=== PATIENT | male | born 1985 | race Caucasian/White ===

== ENCOUNTER 2017-11-20 17:34 | Emergency (ER) | payer MEDICAID, SELFPAY ==
[2017-11-20 18:53] VITALS: BP 107/74; PULSE 69; RESP 18; TEMP 36.8; O2SAT 97; BMI 20.2
--- NOTE | 2017-11-20 19:17 | HMH.EDUTC ---
[facility] [place]ression: Viral upper respiratory illness Disposition: Home, Self-Care Condition on Discharge: Good Instructions: DI for Viral Upper Respiratory Infection -- Adult Additional Instructions: * No sign of bacterial infection. Likely viral. Virus can take 7-14 days to run their course * Nasal Saline to remove nasal drainage and help with nasal congestion. Hard to eat, drink, sleep with nasal congestion so important to keep nose cleaned out * Monitor Temp. Follow up if fever develops. * Encourage fluids, water, gatorade, powerade, pedialyte if infant/toddler/child * warm salt water gargles * warm fluids * sore throat lozenges * sleep elevated * humidifier/vaporizer * Bromfed may cause drowsiness. Know how it effects you (or your child) before driving, caring for small children, or sending your child to school. No other antihistamines/allergy medications while taking bromfed. Prescriptions: Brompheniramine/Pseudoephed/Dm [Bromfed DM Cough Syrup 5mL] 10 ml PO QID PRN #240 ml PRN Reason: Cough Referrals: Gideon Solis [Primary Care Provider] - (Follow up IMMEDIATELY for new or worsening symptoms OR no noticeable improvement over the next 72 hours. 911 for difficulty breathing or swallowing) Time of Disposition: 19:19 Medical Decision Making - Dejuan Inquiry Pt receiving controlled substance: No Vital Signs: 11/20/17 18:53 11/20/17 19:29 Temperature 98.2 F 98.4 F Temperature Source Temporal Artery Scan Pulse Rate 72 Pulse Rate [Right Radial] 69 Respiratory Rate 18 18 Blood Pressure 105/68 Blood Pressure [Right Arm] 107/74 Blood Pressure Mean [Right Arm] 85 Blood Pressure Source [Right Arm] Automatic Cuff Blood Pressure Position [Right Arm] Sitting 02 Sat by Pulse Oximetry 97 Oxygen Delivery Method Room Air Room Air [facility] [place] - General Stated complaint: cough runny nose fever Time Seen by Provider: 11/20/17 18:45 Mode of Arrival: Family Vehicle Source of Information: Patient Limitations: No Limitations Description of Symptoms (Recalled from Triage Doc. by RN): PT C/O UPPER RESPIRATORY ISSUES AND LOW GRADE FEVER SINCE LAST WEEK. HEENT Symptoms (Recalled from RN notes): Yes (UPPER RESPIRATORY ISSUES) Resp Symptoms (Recalled from RN notes): Yes (COUGH) Skin Symptoms (Recalled from RN notes): No MS Symptoms (Recalled from RN notes): No Functional Status (Recalled from RN notes): NA - History of Present Illness Provider Complaint: c/o nonprod cough, rhinorrhea, nasal congestion, sneezing since last Thursday. and kids all with same symptoms. Cough worse at night. No SOA, wheezing. + tobacco use. Hasn't taken or tried anything for symptoms. - Related Data Previous Rx's Medication Instructions Recorded Brompheniramine/Pseudoephed/Dm 10 ml PO QID PRN #240 ml 11/20/17 [Bromfed DM Cough Syrup 5mL] Allergies Allergy/AdvReac Type Severity Reaction Status Date / Time cefaclor [From CECLOR] Allergy Unknown Verified 11/20/17 19:00 Penicillins [PENICILLINS] Allergy Unknown Verified 11/20/17 19:00 - Worker's Comp Is this a Worker's Comp case?: No [facility] History I have reviewed the patient's past medical history: Yes Medical History: Denies:: Cancer, Diabetes Mellitus Type 1, Diabetes Mellitus Type 2, Hypertension, MRSA Other Surgeries: Yes: No Previous Surgery Amputation: No Fractures: No - Social History Smoking Status: Current every day smoker Tobacco Type: cigarettes Alcohol Intake: never - Psychiatric History Expresses thoughts of harming self/others: None Suicide Plan Description: No Plan ROS Obtained: Yes Systems reviewed as appropriate & no additional complaints - Constitutional Constitutional: Reports as per HPI, Denies body ache, Denies chills, Denies poor appetite - Eyes Eyes: Denies eye discharge, Denies itchy eyes - ENT Ears, Nose, Mouth, and Throat: Reports as per HPI, Denies otalgia, Reports post nasal drip, Denies sinus pressure, De
--- NOTE | 2017-11-20 19:20 | ED_ITS ---
[facility] [place]: Viral upper respiratory illness Disposition: Home, Self-Care Condition on Discharge: Good Instructions: DI for Viral Upper Respiratory Infection -- Adult Additional Instructions: * No sign of bacterial infection. Likely viral. Virus can take 7-14 days to run their course * Nasal Saline to remove nasal drainage and help with nasal congestion. Hard to eat, drink, sleep with nasal congestion so important to keep nose cleaned out * Monitor Temp. Follow up if fever develops. * Encourage fluids, water, gatorade, powerade, pedialyte if infant/toddler/ child * warm salt water gargles * warm fluids * sore throat lozenges * sleep elevated * humidifier/vaporizer * Bromfed may cause drowsiness. Know how it effects you (or your child) before driving, caring for small children, or sending your child to school. No other antihistamines/allergy medications while taking bromfed. Prescriptions: Brompheniramine/Pseudoephed/Dm [Bromfed DM Cough Syrup 5mL] 10 ml PO QID PRN # 240 ml PRN Reason: Cough Referrals: Gideon Solis [Primary Care Provider] - (Follow up IMMEDIATELY for new or worsening symptoms OR no noticeable improvement over the next 72 hours. 911 for difficulty breathing or swallowing) Time of Disposition: 19:19 Medical Decision Making - Dejuan Inquiry Pt receiving controlled substance: No Vital Signs: 11/20/17 18:53 11/20/17 19:29 Temperature 98.2 F 98.4 F Temperature Source Temporal Artery Scan Pulse Rate 72 Pulse Rate [Right Radial] 69 Respiratory Rate 18 18 Blood Pressure 105/68 Blood Pressure [Right Arm] 107/74 Blood Pressure Mean [Right Arm] 85 Blood Pressure Source [Right Arm] Automatic Cuff Blood Pressure Position [Right Arm] Sitting 02 Sat by Pulse Oximetry 97 Oxygen Delivery Method Room Air Room Air [facility] [place] - General Stated complaint: cough runny nose fever Time Seen by Provider: 11/20/17 18:45 Mode of Arrival: Family Vehicle Source of Information: Patient Limitations: No Limitations Description of Symptoms (Recalled from Triage Doc. by RN): PT C/O UPPER RESPIRATORY ISSUES AND LOW GRADE FEVER SINCE LAST WEEK. HEENT Symptoms (Recalled from RN notes): Yes (UPPER RESPIRATORY ISSUES) Resp Symptoms (Recalled from RN notes): Yes (COUGH) Skin Symptoms (Recalled from RN notes): No MS Symptoms (Recalled from RN notes): No Functional Status (Recalled from RN notes): NA - History of Present Illness Provider Complaint: c/o nonprod cough, rhinorrhea, nasal congestion, sneezing since last Thursday. and kids all with same symptoms. Cough worse at night. No SOA, wheezing. + tobacco use. Hasn't taken or tried anything for symptoms. - Related Data Previous Rx's Medication Instructions Recorded Brompheniramine/Pseudoephed/Dm 10 ml PO QID PRN #240 ml 11/20/17 [Bromfed DM Cough Syrup 5mL] Allergies Allergy/AdvReac Type Severity Reaction Status Date / Time cefaclor [From CECLOR] Allergy Unknown Verified 11/20/17 19:00 Penicillins [PENICILLINS] Allergy Unknown Verified 11/20/17 19:00 - Worker's Comp Is this a Worker's Comp case?: No [facility] History I have reviewed the patient's past medical history: Yes Medical History: Denies:: Cancer, Diabetes Mellitus Type 1, Diabetes Mellitus Type 2, Hypertension, MRSA Other Surgeries: Yes: No Previous Surgery Amputation: No Frac
[2017-11-20 19:29] VITALS: BP 105/68; PULSE 72; RESP 18; TEMP 36.9; O2SAT 99
== END 2017-11-20 19:30 | disposition home or self-care (01) ==
PROVIDERS: Emergency Provider Nurse Practitioner Family; Family Provider Nurse Practitioner; PCP Family Medicine
DX: J06.9 Acute upper respiratory infection, unspecified (principal); Z88.0 Allergy status to penicillin
CPT/HCPCS: 99201

== ENCOUNTER 2017-12-10 16:51 | Emergency (ER) | payer MEDICAID, SELFPAY ==
[2017-12-10 17:02] VITALS: BMI 20.2
--- NOTE | 2017-12-10 17:02 | XR_ITS ---
XR shoulder LT min 2V COMPARISON: None HISTORY: Left shoulder pain TECHNIQUE: 3 views left shoulder FINDINGS: The clavicle is intact and the AC joint appears normal. The humeral head and glenoid are normal and there are no soft tissue calcifications. IMPRESSION: Negative left shoulder
[2017-12-10 17:07] VITALS: BP 127/78; PULSE 73; RESP 20; TEMP 36.5; O2SAT 98; BMI 20.2
--- NOTE | 2017-12-10 17:24 | HMH.EDUTC ---
[facility] [place] Clinical Impression: Left shoulder pain Qualifiers: Chronicity: acute Qualified Code(s): M25.512 - Pain in left shoulder Disposition: Home, Self-Care Condition on Discharge: Good Additional Instructions: Immobilize shoulder. Ice. F/U with PCP next week. Prescriptions: Cyclobenzaprine HCl [Cyclobenzaprine 10mg Tab] 10 mg PO TID PRN 10 Days #30 tab PRN Reason: Muscle Spasm methylPREDNISolone [Medrol] 4 mg PO DIRECTED 6 Days #1 tab.ds.pk Referrals: Gideon Solis [Primary Care Provider] - Time of Disposition: 17:44 Medical Decision Making - Dejuan Inquiry Pt receiving controlled substance: No Vital Signs: 12/10/17 17:07 Temperature 97.7 F Temperature Source Temporal Artery Scan Pulse Rate [Brachial] 73 Respiratory Rate 20 Blood Pressure [Right Arm] 127/78 Blood Pressure Mean [Right Arm] 94 Blood Pressure Source [Right Arm] Automatic Cuff Blood Pressure Position [Right Arm] Sitting 02 Sat by Pulse Oximetry 98 Orders (Tests/Meds): ORDERS Category Date Time Status Shoulder XR left minimum 2 views [XR shoulder LT min 2V Exams 12/10/17 17:02 Taken ] Stat - Radiology Data #1 Image(s): Shoulder Image Reviewed: Yes I reviewed the patient's radiology image Preliminary Findings: No Fracture Seen [facility] [place] HPI - General Stated complaint: left shhoulder pain Time Seen by Provider: 12/10/17 17:24 Mode of Arrival: Ambulatory Source of Information: Patient Limitations: No Limitations Description of Symptoms (Recalled from Triage Doc. by RN): PT PRESENTS WITH LEFT SHOULDER AND ARM PIT PAIN THAT BEGAN 2 DAYS AGO. PT DOES NOT KNOW IF HE INJURIED IT OR WHY HE HAS PAIN. LIMITED ROM IS NOTED. HEENT Symptoms (Recalled from RN notes): No Resp Symptoms (Recalled from RN notes): No Skin Symptoms (Recalled from RN notes): No MS Symptoms (Recalled from RN notes): Yes Functional Status (Recalled from RN notes): NA - History of Present Illness Provider Complaint: Patient presents with left shoulder pain X 2-3 days. No known injury. He has been doing yard and tree work, but doesn't recall any injury or acute pain while working. He denies any rash or skin breakdown or abscess. His arm does not hurt, does not feel numb or tingly, and does not feel weak. Onset (ago): day(s) (3) Location: left, upper extremity Radiation: non-radiation Quality: sharp, constant Consistency: constant Relieving factors: none Exacerbating factors: movement Associated symptoms: denies other symptoms Treatments prior to arrival: none - Related Data Previous Rx's Medication Instructions Recorded Brompheniramine/Pseudoephed/Dm 10 ml PO QID PRN #240 ml 11/20/17 [Bromfed DM Cough Syrup 5mL] Cyclobenzaprine HCl 10 mg PO TID PRN 10 Days #30 tab 12/10/17 [Cyclobenzaprine 10mg Tab] methylPREDNISolone [Medrol] 4 mg PO DIRECTED 6 Days #1 12/10/17 tab.ds.pk Allergies Allergy/AdvReac Type Severity Reaction Status Date / Time cefaclor [From CECLOR] Allergy Unknown Verified 11/20/17 19:00 Penicillins [PENICILLINS] Allergy Unknown Verified 11/20/17 19:00 - Worker's Comp Is this a Worker's Comp case?: No [facility] History I have reviewed the patient's past medical history: Yes Medical History: Denies:: Cancer, Diabetes Mellitus Type 1, Diabetes Mellitus Type 2, Hypertension, MRSA Other Surgeries: Yes: No Previous Surgery Amputation: No Fractures: No - Social History Smoking Status: Current every day smoker Tobacco Type: cigarettes Alcohol Intake: never - Psychiatric History Expresses thoughts of harming self/others: None Suicide Plan Description: No Plan ROS Obtained: Yes All systems reviewed & no additional complaints - Musculoskeletal Musculoskeletal: Reports joint pain, Reports joint stiffness, Reports limited range of motion Physical Exam - General General appearance: alert, in no apparent distress - Head Head exam: atraumatic, normocephalic - Eye Eye exam: Presen
--- NOTE | 2017-12-10 17:36 | ED_ITS ---
[facility] – [place] Disposition Clinical Impression: Left shoulder pain Qualifiers: Chronicity: acute Qualified Code(s): M25.512 - Pain in left shoulder Disposition: Home, Self-Care Condition on Discharge: Good Additional Instructions: Immobilize shoulder. Ice. F/U with PCP next week. Prescriptions: Cyclobenzaprine HCl [Cyclobenzaprine 10mg Tab] 10 mg PO TID PRN 10 Days #30 tab PRN Reason: Muscle Spasm methylPREDNISolone [Medrol] 4 mg PO DIRECTED 6 Days #1 tab.ds.pk Referrals: Gideon Solis [Primary Care Provider] - Time of Disposition: 17:44 Medical Decision Making - Dejuan Inquiry Pt receiving controlled substance: No Vital Signs: 12/10/17 17:07 Temperature 97.7 F Temperature Source Temporal Artery Scan Pulse Rate [Brachial] 73 Respiratory Rate 20 Blood Pressure [Right Arm] 127/78 Blood Pressure Mean [Right Arm] 94 Blood Pressure Source [Right Arm] Automatic Cuff Blood Pressure Position [Right Arm] Sitting 02 Sat by Pulse Oximetry 98 Orders (Tests/Meds): ORDERS Category Date Time Status Shoulder XR left minimum 2 views [XR shoulder LT min 2V Exams 12/10/17 17:02 Taken ] Stat - Radiology Data #1 Image(s): Shoulder Image Reviewed: Yes I reviewed the patient's radiology image Preliminary Findings: No Fracture Seen [facility] [place] HPI - General Stated complaint: left shhoulder pain Time Seen by Provider: 12/10/17 17:24 Mode of Arrival: Ambulatory Source of Information: Patient Limitations: No Limitations Description of Symptoms (Recalled from Triage Doc. by RN): PT PRESENTS WITH LEFT SHOULDER AND ARM PIT PAIN THAT BEGAN 2 DAYS AGO. PT DOES NOT KNOW IF HE INJURIED IT OR WHY HE HAS PAIN. LIMITED ROM IS NOTED. HEENT Symptoms (Recalled from RN notes): No Resp Symptoms (Recalled from RN notes): No Skin Symptoms (Recalled from RN notes): No MS Symptoms (Recalled from RN notes): Yes Functional Status (Recalled from RN notes): NA - History of Present Illness Provider Complaint: Patient presents with left shoulder pain X 2-3 days. No known injury. He has been doing yard and tree work, but doesn't recall any injury or acute pain while working. He denies any rash or skin breakdown or abscess. His arm does not hurt, does not feel numb or tingly, and does not feel weak. Onset (ago): day(s) (3) Location: left, upper extremity Radiation: non-radiation Quality: sharp, constant Consistency: constant Relieving factors: none Exacerbating factors: movement Associated symptoms: denies other symptoms Treatments prior to arrival: none - Related Data Previous Rx's Medication Instructions Recorded Brompheniramine/Pseudoephed/Dm 10 ml PO QID PRN #240 ml 11/20/17 [Bromfed DM Cough Syrup 5mL] Cyclobenzaprine HCl 10 mg PO TID PRN 10 Days #30 tab 12/10/17 [Cyclobenzaprine 10mg Tab] methylPREDNISolone [Medrol] 4 mg PO DIRECTED 6 Days #1 12/10/17 tab.[email or web address] Allergies Allergy/AdvReac Type Severity Reaction Status Date / Time cefaclor [From CECLOR] Allergy Unknown Verified 11/20/17 19:00 Penicillins [PENICILLINS] Allergy Unknown Verified 11/20/17 19:00 - Worker's Comp Is this a Worker's Comp case?: No [facility] History I have reviewed the patient's past medical history: Yes Medical History: Denies:: Cancer, Diabetes Mellitus Type 1, Diabe
[2017-12-10 17:43] VITALS: BP 127/78; PULSE 73; RESP 20; TEMP 36.5; O2SAT 98
== END 2017-12-10 17:45 | disposition home or self-care (01) ==
PROVIDERS: Emergency Provider Physician Assistant; Family Provider Nurse Practitioner; PCP Family Medicine
DX: M25.512 Pain in left shoulder (principal); F17.210 Nicotine dependence, cigarettes, uncomplicated; Z88.0 Allergy status to penicillin; Z88.1 Allergy status to other antibiotic agents
CPT/HCPCS: 73030; 99202